=== PATIENT | female | born 1935 | race Caucasian/White ===

== ENCOUNTER 2016-03-04 11:03 | Outpatient (CLI) | payer MEDICARE | END 2016-03-04 11:04 | disposition home or self-care (01) | LOC: NAVSJIPCSP 11:03 | PROVIDERS: ATTEND Specialist | DX: I10 Essential (primary) hypertension (principal) | CPT/HCPCS: 36415; 80061 ==

== ENCOUNTER 2016-08-11 08:48 | Outpatient (CLI) | payer MEDICARE ==
[2016-08-11 12:30] LABS: #Basophils 0.1 thou/uL (0.0-0.2); #Lymphocytes 2.1 thou/uL (1.20-3.40); #Monocytes 0.6 thou/uL (0.11-0.59); %Basophils 0.6 % (0.0-1.0); %Eosinophils 0.5 % (0.0-10.0); %Lymphocytes 21.2 % (21.0-51.0); %Monocytes 6.4 % (0.0-10.0); %Neutrophils 71.4 % (42.0-75.0); Hemoglobin 12.4 g/dL (12.0-16.0); Mean Corpuscular HGB CONC 32.9 g/dL (32.0-36.0); Mean Corpuscular Hemoglobin 30.4 pg (27.0-31.0); Mean Corpuscular Volume 92.3 fl (81.0-99.0); Mean Platelet Volume 6.9 fL (7.4-10.4); Platelet Count 244 thou/uL (130-400); RBC Distribution Width 12.2 % (11.5-14.5); Red Blood Cell (RBC) Count 4.08 mill/uL (4.20-5.40); White Blood Cell (WBC) Count 9.9 thou/uL (4.8-10.8)
[2016-08-11 12:54] LABS: ALT (SGPT) 19 U/L (8-55); AST (SGOT) 24 U/L (5-34); Albumin 4.6 g/dL (3.4-4.8); Alkaline Phosphatase 93 U/L (40-150); Anion Gap 15 mmol/L (10-20); BUN (Urea Nitrogen) 23 mg/dL (9.8-20.1); Bilirubin, Direct 0.3 mg/dL (0.1-0.3); Calc. Creatinine Clearance 0 mL/min (70-130); Calcium 10.1 mg/dL (7.8-10.44); Carbon Dioxide 26 mmol/L (23-31); Cardiac Risk 4.7 (Less than 4.5); Chloride 101 mmol/L (98-107); Cholesterol 272 mg/dl (< 200 Desired); Estimated GFR-MDRD 68; Glucose 94 mg/dL (83-110); HDL Cholesterol 58 mg/dL (>60 Neg Risk); LDL Cholesterol, Calculated 191 mg/dL; Potassium 4.3 mmol/L (3.5-5.1); Protein, Total 7.1 g/dL (6.0-8.3); Sodium 138 mmol/L (136-145); Triglycerides 114 mg/dL (Less than 150)
[2016-08-11 13:04] LABS: Hemoglobin A1c 5.6 % (4.0-6.0)
== END 2016-08-11 08:49 ==
LOC: NAVSJIPCSP 08:48
PROVIDERS: ATTEND Family Medicine
DX: E03.9 Hypothyroidism, unspecified (principal); M54.31 Sciatica, right side; M54.32 Sciatica, left side; M47.26 Other spondylosis with radiculopathy, lumbar region; M48.06 Spinal stenosis, lumbar region; I11.9 Hypertensive heart disease without heart failure; Z79.899 Other long term (current) drug therapy
CPT/HCPCS: 36415; 80048; 80061; 80076; 83036; 84443; 85025

== ENCOUNTER 2016-09-23 12:02 | Outpatient (CLI) | payer MEDICARE | END 2016-09-23 12:03 | disposition home or self-care (01) | LOC: NAVSJIPCSP 12:02 | PROVIDERS: ATTEND Internal Medicine Gastroenterology | DX: C18.9 Malignant neoplasm of colon, unspecified (principal) | CPT/HCPCS: 82378 ==

== ENCOUNTER 2016-11-08 08:38 | Emergency (ER) | payer MEDICARE ==
[2016-11-08] MEDS ORDERED: Iopamidol 370 76% 100 ML VIAL ONE (09:00)
[2016-11-08] MEDS ORDERED: Ketorolac Tromethamine 30 MG/ML VIAL ONE (09:03)
[2016-11-08] MEDS ORDERED: Lidocaine Viscous Sol 2% 15 ml UD Cup ONE (09:04)
[2016-11-08] MEDS ORDERED: Mag-Al Plus 1200 MG/1200 MG/120 MG/30 ML UDCUP ONE (09:04)
[2016-11-08] MEDS ORDERED: Ondansetron HCl/PF 4 MG/2 ML Vial ONE ×2 (09:04→12:25)
[2016-11-08 09:17] LABS: #Basophils 0.1 thou/uL (0.0-0.2); #Eosinphils 0.1 thou/uL (0.0-0.7); #Monocytes 0.6 thou/uL (0.11-0.59); #Neutrophils 12.4 thou/uL (1.40-6.50); %Basophils 0.5 % (0.0-1.0); %Eosinophils 0.4 % (0.0-10.0); Hemoglobin 12.9 g/dL (12.0-16.0); Mean Corpuscular HGB CONC 32.5 g/dL (32.0-36.0); Mean Corpuscular Hemoglobin 29.6 pg (27.0-31.0); Mean Corpuscular Volume 91.1 fl (81.0-99.0); Mean Platelet Volume 6.4 fL (7.4-10.4); Platelet Count 281 thou/uL (130-400); RBC Distribution Width 12.2 % (11.5-14.5); Red Blood Cell (RBC) Count 4.34 mill/uL (4.20-5.40); White Blood Cell (WBC) Count 15.1 thou/uL (4.8-10.8)
[2016-11-08 09:24] LABS: ALT (SGPT) 20 U/L (8-55); AST (SGOT) 21 U/L (5-34); Albumin 4.5 g/dL (3.4-4.8); Alkaline Phosphatase 104 U/L (40-150); Anion Gap 20 mmol/L (10-20); BUN (Urea Nitrogen) 24 mg/dL (9.8-20.1); Bilirubin, Total 1.2 mg/dL (0.2-1.2); CK (CPK) 148 U/L (29-168); CKMB 4.5 ng/mL (0-6.6); Calc. Creatinine Clearance 0 mL/min (70-130); Calcium 10.2 mg/dL (7.8-10.44); Carbon Dioxide 21 mmol/L (23-31); Chloride 101 mmol/L (98-107); Estimated GFR-MDRD 61; Globulin 2.5 g/dL (2.4-3.5); Glucose 137 mg/dL (83-110); Lipase 34 U/L (8-78); Potassium 3.7 mmol/L (3.5-5.1); Sodium 138 mmol/L (136-145); Troponin I Less than 0.010 ng/mL (< 0.028)
--- NOTE | 2016-11-08 09:33 | RAD ---
TWO VIEWS ABDOMEN UPRIGHT CHEST: Comparison: None. History: Abdominal pain that started last night, vomiting. FINDINGS: Supine and upright views of the abdomen and upright view of the chest shows a nonspecific, nonobstru cted bowel gas pattern. No free air or air fluid levels are seen on upright examination. There is an air filled loop of small bowel in the left upper quadrant of the abdomen which is nonspecific. The heart is normal in size with atherosclerotic calcifications in the aorta. There is no evidence o f consolidation, mass, or pleural effusion. IMPRESSION: No evidence of obstruction. POS: JULIUS
[2016-11-08] MEDS ORDERED: Sodium Chloride 0.9% 1,000 ML ONE (10:14)
[2016-11-08 11:40] LABS: Bilirubin Negative (Negative); Blood, Urine Trace (Negative); Clarity Cloudy (Clear); Glucose, Urine (Dipstick) Negative (Negative); Leukocyte Small (Negative); Nitrite Negative (Negative); Protein, Urine (Dipstick) Negative (Neg-Trace); Specific Gravity, Urine 1.025 (1.005-1.030); Urobilinogen 0.2 mg/dL (0.2-1.0)
[2016-11-08 11:47] LABS: Bacteria/HPF 3+ HPF (None Seen); Squamous Epithelial 0-3 HPF (0-3)
[2016-11-08] MEDS ORDERED: Ciprofloxacin 500 MG TAB ONE (12:25)
[2016-11-08] MEDS ORDERED: Fentanyl 100 MCG/2 ML VIAL ONE ×2 (13:49→14:28)
[2016-11-08] MEDS ORDERED: Promethazine HCl 25 MG/ML VIAL ONE (14:33)
[2016-11-08] MEDS ORDERED: Sodium Chloride 0.9% 250 ML 250 ML ONE (14:33)
--- NOTE | 2016-11-08 18:00 | CT ---
CT ABDOMEN and PELVIS WITH IV AND ORAL CONTRAST 11/08/16 HISTORY: Abdominal pain. FINDINGS: Mild atelectasis is present at the lung bases. Small amount of free fluid is present within the righ t upper quadrant. Hyperdense stones are present within the gallbladder lumen. Dilated loops of ileu m in the mid abdomen measure up to 3.3 cm. The proximal jejunum and distal ileum are not significant ly dilated. Postoperative changes of the right colon are apparent. There is calcification in the art erial structures. The urinary bladder is incompletely distended. IMPRESSION: 1. Closed loop obstruction of the mid small bowel. Cause is not evident. Please consider surgic al evaluation. 2. Atherosclerosis. 3. Cholelithiasis. 4. Small amount of ascites. Cause is not apparent. POS: SAMANTHA
== END 2016-11-08 17:54 | disposition short-term general hospital (02) ==
LOC: NAV ERS 08:38
DX: K56.60 Unspecified intestinal obstruction (principal); E78.5 Hyperlipidemia, unspecified; I10 Essential (primary) hypertension
CPT/HCPCS: 74022; 74177; 80053; 81003; 81015; 82150; 82550; 82553; 83690; 84484; 85025; 87077; 87086; 87186; 93005; 96361; 96365; 96375; 96376; J1885; J2405; J2550; J3010; J7050

== ENCOUNTER 2017-01-25 14:21 | Outpatient (CLI) | payer MEDICARE ==
[2017-01-25 15:27] LABS: Bilirubin Negative (Negative); Blood, Urine Moderate (Negative); Clarity Clear (Clear); Glucose, Urine (Dipstick) Negative (Negative); Leukocyte Large (Negative); Nitrite Negative (Negative); Protein, Urine (Dipstick) Negative (Neg-Trace); Urobilinogen 0.2 mg/dL (0.2-1.0)
[2017-01-25 15:30] LABS: RBC/HPF 0-3 HPF (0-3)
[2017-01-25 15:31] LABS: Bacteria/HPF Rare-Few HPF (None Seen)
== END 2017-01-25 14:22 | disposition home or self-care (01) ==
LOC: NAV LABSP 14:21
PROVIDERS: ATTEND Family Medicine
DX: R30.0 Dysuria (principal)
CPT/HCPCS: 81003; 81015; 87077; 87086; 87186

== ENCOUNTER 2022-08-22 08:11 | Emergency (ER) | payer MEDICARE | END 2022-08-22 08:40 | disposition home or self-care (01) | LOC: NAV ERS 08:11 | DX: S01.81XD Laceration without foreign body of other part of head, subsequent encounter (principal); I10 Essential (primary) hypertension; E03.9 Hypothyroidism, unspecified ==

== ENCOUNTER 2022-09-26 09:21 | Emergency (ER) | payer MEDICARE ==
[2022-09-26 09:39] LABS: Bilirubin Negative (Negative); Blood, Urine Small (Negative); Clarity Cloudy (Clear); Glucose, Urine (Dipstick) Negative (Negative); Ketone, Urine Negative (Negative); Leukocyte Large (Negative); Nitrite Positive (Negative); Protein, Urine (Dipstick) Negative (Neg-Trace); Urobilinogen 0.2 mg/dL (Less than 2); pH, Urine 7.5 (5.0-9.0)
[2022-09-26 09:42] LABS: CAUTI Indications for Culture Dysuria,urgency,freq; WBC/HPF 21-50 HPF (0-3)
[2022-09-26 09:43] LABS: Bacteria/HPF 2+ HPF (None Seen)
[2022-09-26 09:44] LABS: Urine Culture Reflex Yes Yes
[2022-09-26] MEDS ORDERED: cefTRIAXone (ROCEPHIN) 1 GM VIAL ONE (09:50)
== END 2022-09-26 10:19 | disposition home or self-care (01) ==
LOC: NAV ERS 09:21
DX: N39.0 Urinary tract infection, site not specified (principal); I10 Essential (primary) hypertension; E03.9 Hypothyroidism, unspecified
CPT/HCPCS: 81001; 87077; 87086; 87186; 96372; 99283; J0696

== ENCOUNTER 2023-04-05 08:47 | Emergency (ER) | payer MEDICARE ==
[2023-04-05 09:25] LABS: Bilirubin Negative (Negative); Blood, Urine Moderate (Negative); Clarity Cloudy (Clear); Glucose, Urine (Dipstick) Negative (Negative); Ketone, Urine Negative (Negative); Leukocyte Large (Negative); Nitrite Negative (Negative); Protein, Urine (Dipstick) Negative (Neg-Trace); Specific Gravity, Urine 1.025 (1.005-1.030); Urobilinogen 0.2 mg/dL (Less than 2)
[2023-04-05 09:46] LABS: Bacteria/HPF 1+ HPF (None Seen); CAUTI Indications for Culture Dysuria,urgency,freq; Squamous Epithelial 0-3 HPF (0-3); WBC/HPF Greater Than 50 HPF (0-3)
[2023-04-05 09:47] LABS: Urine Culture Reflex Yes Yes
== END 2023-04-05 10:17 | disposition home or self-care (01) ==
LOC: NAV ERS 08:47
DX: N39.0 Urinary tract infection, site not specified (principal); I10 Essential (primary) hypertension; E03.9 Hypothyroidism, unspecified; Z79.899 Other long term (current) drug therapy
CPT/HCPCS: 81001; 87077; 87086; 87186; 99283

== ENCOUNTER 2023-04-15 19:15 | Emergency (ER) | payer MEDICARE, OTHER ==
[2023-04-15] MEDS ORDERED: Morphine 2 MG/ML VIAL ONE (22:43)
[2023-04-15] MEDS ORDERED: Ondansetron PF 4 MG/2 ML Vial ONE (22:43)
== END 2023-04-15 23:56 | disposition short-term general hospital (02) ==
LOC: NAV ERS 19:15
DX: S72.011A Unspecified intracapsular fracture of right femur, initial encounter for closed fracture (principal); I10 Essential (primary) hypertension; E03.9 Hypothyroidism, unspecified; Z79.899 Other long term (current) drug therapy; W01.0XXA Fall on same level from slipping, tripping and stumbling without subsequent striking against object, initial encounter; Y93.01 Activity, walking, marching and hiking; Y92.22 Religious institution as the place of occurrence of the external cause
CPT/HCPCS: 96374; 96375; J2272; J2405

== ENCOUNTER 2023-12-25 03:23 | Emergency (ER) | payer MEDICARE ==
[2023-12-25] MEDS ORDERED: Ondansetron PF 4 MG/2 ML Vial ONE (04:12)
[2023-12-25] MEDS ORDERED: Ketorolac Tromethamine 30 MG (1 mL) VIAL ONE (04:12)
[2023-12-25] MEDS ORDERED: Pantoprazole 40 MG VIAL ONE (04:13)
[2023-12-25 04:14] LABS: #Lymphocytes 0.7 thou/uL (1.20-3.40); #Monocytes 0.6 thou/uL (0.11-0.59); #Neutrophils 6.7 thou/uL (1.40-6.50); %Basophils 0.3 % (0.0-1.0); %Eosinophils 0.4 % (0.0-10.0); %Lymphocytes 8.7 % (21.0-51.0); %Monocytes 7.4 % (0.0-10.0); %Neutrophils 83.3 % (42.0-75.0); Hemoglobin 12.7 g/dL (12.0-16.0); Mean Corpuscular HGB CONC 34.3 g/dL (32.0-36.0); Mean Corpuscular Hemoglobin 30.3 pg (27.0-31.0); Mean Corpuscular Volume 88.5 fl (78.0-98.0); Mean Platelet Volume 7.2 fL (7.4-10.4); Platelet Count 210 10x3/uL (130-400); RBC Distribution Width 12.4 % (11.5-14.5); Red Blood Cell (RBC) Count 4.18 mill/uL (4.20-5.40); White Blood Cell (WBC) Count 8.1 10x3/uL (4.8-10.8)
[2023-12-25 04:19] LABS: Bilirubin Negative (Negative); Blood, Urine Small (Negative); Clarity Slightly Cloudy (Clear); Glucose, Urine (Dipstick) Negative (Negative); Ketone, Urine Negative (Negative); Nitrite Positive (Negative); Protein, Urine (Dipstick) Negative (Neg-Trace); Specific Gravity, Urine 1.015 (1.005-1.030); Urobilinogen 0.2 mg/dL (Less than 2); pH, Urine 6.5 (5.0-9.0)
[2023-12-25 04:22] LABS: ALT (SGPT) 16 U/L (8-55); AST (SGOT) 18 U/L (5-34); Albumin 3.7 g/dL (3.4-4.8); Alkaline Phosphatase 102 U/L (40-110); Anion Gap 14 mmol/L (10-20); BUN (Urea Nitrogen) 24 mg/dL (9.8-20.1); Bilirubin, Total 1.2 mg/dL (0.2-1.2); Calc. Creatinine Clearance 0 mL/min (70-130); Calcium 9.4 mg/dL (7.8-10.44); Carbon Dioxide 25 mmol/L (23-31); Chloride 100 mmol/L (98-107); Estimated GFR 67; Globulin 3.1 g/dL (2.4-3.5); Glucose 113 mg/dL (83-110); Lipase 42 U/L (8-78); Potassium 3.9 mmol/L (3.5-5.1); Protein, Total 6.8 g/dL (5.8-8.1); Sodium 135 mmol/L (136-145)
[2023-12-25 04:24] LABS: Leukocyte Trace (Negative)
[2023-12-25 04:24] LABS: Troponin I 0.011 ng/mL (< 0.028)
[2023-12-25 04:27] LABS: Bacteria/HPF 2+ HPF (None Seen); CAUTI Indications for Culture Dysuria,urgency,freq; RBC/HPF 0-3 HPF (0-3)
[2023-12-25 04:28] LABS: Urine Culture Reflex Yes Yes
[2023-12-25] MEDS ORDERED: Nitrofurantoin Monohyd/M-Cryst 100 MG CAP ONE (05:54)
== END 2023-12-25 06:46 | disposition home or self-care (01) ==
LOC: NAV ERS 03:23
DX: A09 Infectious gastroenteritis and colitis, unspecified (principal); N39.0 Urinary tract infection, site not specified; I10 Essential (primary) hypertension
CPT/HCPCS: 74176; 80053; 81001; 83690; 84484; 85025; 87077; 87086; 87186; 93005; 94760; 96374; 96375; J1885; J2405; J2470